=== PATIENT | female | born 1930 | race Caucasian/White ===

== ENCOUNTER 2016-11-04 19:50 | Inpatient (IN) | payer OTHER ==
--- NOTE | ~2016-11-04 | CR71 ---
[facility] A Service of [facility] RADIOLOGY TEXT RESULTS PATIENT: TYRESE GAMA LOCATION: [facility] : 31 UNIT #: [id number] AGE: [address]: Zan Blanchard MD SEX: F ORDER DR: [id number] [facility] [address]. [place], [place] [address] [id number] I MR#: [id number] Acc #: [id number] NAME: TYRESE GAMA : 1930 SEX: F STUDY DATE/TIME: 11/05/2016 0:02 UNIT: [facility] ROOM: [facility] STUDY DESCRIPTION: CR Chest Single View Attending Physician: Zan Blanchard M.D. Ordering Physician: Zan Blanchard M.D. Primary Care Physician: Brian Mao M.D. MEDICAL IMAGING REPORT This report is preliminary unless electronic signature is present EXAM Portable chest, 11/05/2016 INDICATION Shortness of air and syncope today. PROCEDURE Frontal view chest. COMPARISON 11/04/2016 at 1929 hours. FINDINGS Cardiomegaly is stable. Stable large left pleural effusion. Diffuse interstitial coarsening is unchanged. Probable small right effusion. No pneumothorax. IMPRESSION No significant change from 11/04/2016 at 1929 hours, stable large left effusion and small right effusion. Dictated by... Elier Vanessa M.D. THIS IS AN ELECTRONICALLY VERIFIED REPORT Elier Vanessa M.D. at 11/05/2016 10:14 PM SHANNOND/ellen TD: 11/05/2016 03:12 JOB #: [id number] [facility] A Service of [facility] RADIOLOGY TEXT RESULTS PATIENT: TYRESE GAMA LOCATION: [facility] : 31 UNIT #: [id number] AGE: [address]: Zan Blanchard MD SEX: F ORDER DR: MEDICAL IMAGING REPORT Page 1 of 1 COPY
--- NOTE | ~2016-11-04 | CO ---
Unit #: [id number] #: [id number] Patient: TYRESE GAMA [id number] [address] [address] [id number] I MR#: [id number] NAME: TYRESE GAMA ROOM: 561 Age: 86 Sex: F Admission Date: 11/04/2016 : 1930 Attending Physician: Zan Blanchard M.D. Primary Care Physician: Brian Mao M.D. CONSULTATION REPORT REASON FOR CONSULTATION Respiratory failure. CHIEF COMPLAINT Shortness of breath. HISTORY OF PRESENT ILLNESS An 86-year-old female with past medical history of coronary artery disease, congestive heart failure, pulmonary hypertension, dyslipidemia, likely COPD who presents with a complaint of shortness of breath to the emergency room and chest x-ray shows bilateral effusion and bilateral pulmonary edema and atelectasis on the left side. I am seeing the patient at bedside. PAST MEDICAL HISTORY As described above. PAST SURGICAL HISTORY CABG. MEDICATIONS 1. Aspirin. 2. Lipitor. 3. Multivitamin. ALLERGIES No known drug allergies. SOCIAL HISTORY Ex-smoker. No alcohol. No drug abuse. FAMILY HISTORY None as per record. PHYSICAL EXAMINATION VITAL SIGNS: Temperature 98, pulse 67, respirations 20, blood pressure 194/50. NEUROLOGIC: Awake, alert, oriented. No neuro deficit. HEENT: PERRLA plus 1. NECK: Supple. No JVD. CHEST: Bilateral air entry. Bilateral mild rhonchi. GASTROINTESTINAL: Nontender, soft. Bowel sounds positive. EXTREMITIES: Positive edema. SKIN: No rash. No ulcer. Unit #: [id number] #: [id number] Patient: TYRESE GAMA LYMPHATIC: No lymphadenopathy. DIAGNOSTIC STUDIES LABORATORY: Blood gas: A pH 7.27, pCO2 of 70, pO2 of 71. Creatinine is 0.5. BNP was 497. White count is normal. Hemoglobin 10, hematocrit 33, platelet count 143,000. ASSESSMENT 1. Acute hypoxic hypercapnic respiratory failure. 2. Acute exacerbation of congestive heart failure. 3. Acute exacerbation of chronic obstructive pulmonary disease. 4. Pleural effusion. 5. History of mitral regurgitation. PLAN At this point, plan is to continue patient on IV diuresis. Start her on IV steroids, IV antibiotics, bronchodilator, gastrointestinal/deep venous thrombosis prophylaxis. Will order noncontrast CT of the chest. Will order a thoracentesis also. The patient will be closely monitored. Please see orders for detailed plan. Will also continue the BiPAP support. Thank you very much for this consultation. Dictated by... Real Fontenot TD: 11/05/2016 12:24 JOB #: [id number] CONSULTATION REPORT Page 1 of 1 X Nelson Tovar MD X CONSULTATION REPORT
--- NOTE | ~2016-11-04 | A ---
[facility] Nutrition Therapy DATE: 11/06/16 Patient: TYRESE GAMA Physician: ROBYN Address: [address] Room/Bed: [address] [place] [address], Zip: [place] [address] Admit Date: 11/04/16 Date of : 31 Height: 5 4 Weight: 144 65.6 NUTRITIONAL ASSESSMENT: REASON: Stroke protocol nutrition assessment Anthropometrics: Ht: 64" Wt: 65.6 kg BMI: 24.8 Diet: Heart healthy with 1800 cc fluid restriction Assessment: Chart reviewed, events noted. Pt does not have any swallowing difficulties per note in chart. Pt has been ordered a heart healthy diet with 1800 cc fluid restriction. Pt was off the floor at echocardiogram at time of RD visit, and no family present in the room. Per RN report the pt ate breakfast this AM, and ordered lunch, which was sitting in the room at time of RD visit. RD left heart healthy diet materials at bedside, as well as contact information for RD. RD to remain available if the pt has any questions/ concerns regarding her diet. Recommendations: 1. Pt to follow a heart healthy diet with fluid restriction per MD. Please consult RD for any further nutritional needs. Respectfully, TREMAINE WEAVER RD, LD [employer] and [facility] cc: client file
--- NOTE | ~2016-11-04 | MR122 ---
[facility] A Service of [facility] RADIOLOGY TEXT RESULTS PATIENT: TYRESE GAMA LOCATION: [facility] : 31 UNIT #: [id number] AGE: [address]: Zan Blanchard MD SEX: F ORDER DR: [id number] [facility] [address] [facility] [place], [place] [address] [id number] I MR#: [id number] Acc #: [id number] NAME: TYRESE GAMA : 1930 SEX: F STUDY DATE/TIME: 11/06/2016 18:03 UNIT: A PCU ROOM: [facility] STUDY DESCRIPTION: MR MRA Head Wo Contrast Attending Physician: Zan Blanchard M.D. Ordering Physician: Zan Blanchard M.D. Primary Care Physician: Brian Mao M.D. MRI CENTER REPORT This report is preliminary unless electronic signature is present. EXAM MR angiogram brain without contrast HISTORY Near-syncope and weakness 2 days ago. New onset confusion. FINDINGS MR angiogram of the brain was performed without contrast. Exam sensitivity is partly limited by patient motion. The intracranial internal carotid arteries appear widely patent. 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 The basilar artery is widely patent. Incidentally noted is a fenestrated distal left A1 segment. Patent anterior communicating artery is noted. origin of the right posterior cerebral artery. The anterior cerebral, middle cerebral and posterior cerebral arteries are widely patent. No major vessel occlusion is identified. No aneurysm is identified. IMPRESSION 1. No major intracranial arterial occlusion or significant stenosis is identified. 2. 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 Dictated by... Abimael Escamilla M.D. [facility] A Service of [facility] RADIOLOGY TEXT RESULTS PATIENT: TYRESE GAMA LOCATION: [facility] : 31 UNIT #: [id number] AGE: [address]: Zan Blanchard MD SEX: F ORDER DR: THIS IS AN ELECTRONICALLY VERIFIED REPORT Abimael Bhakti Escamilla M.D. at 11/07/2016 2:28 PM COLLIN/ellen TD: 11/06/2016 22:59 JOB #: [id number] [facility] CENTER REPORT Page 1 of 1 COPY
--- NOTE | ~2016-11-04 | CR63 ---
[facility] A Service of [facility] & [facility] RADIOLOGY TEXT RESULTS PATIENT: TYRESE GAMA LOCATION: [facility] - : 31 UNIT #: [id number] AGE: [address]: Zan Blanchard MD SEX: F ORDER DR: [id number] [facility] [address]. [place], [place] [address] [id number] I MR#: [id number] Acc #: [id number] NAME: TYRESE GAMA : 1930 SEX: F STUDY DATE/TIME: 11/07/2016 7:24 UNIT: A U ROOM: [facility] STUDY DESCRIPTION: CR Chest 2 View Attending Physician: Zan Blanchard M.D. Ordering Physician: Zan Blanchard M.D. Primary Care Physician: Brian Mao M.D. MEDICAL IMAGING REPORT This report is preliminary unless electronic signature is present EXAM 2 views chest 11/07/2016 HISTORY Follow up CHF. Short of air. Duration 4 days. CABG. Valve replacement. FINDINGS PA and lateral radiographs of the chest are presented. Comparison 11/05/2016. Stable cardiac enlargement status post median sternotomy and cardiac valve replacement. Patient appears to be status post CABG as well. Ongoing unchanged pulmonary vascular congestion. Interstitial prominence throughout the lungs unchanged. Airspace disease left lower lung zone with small bilateral pleural effusions, left greater than right. No change. Findings consistent with stable moderate pulmonary edema likely cardiogenic with interstitial airspace and pleural space components. No acute bony abnormality. Dictated by... Boogie Echeverria M.D. THIS IS AN ELECTRONICALLY VERIFIED REPORT Boogie Echeverria M.D. at 11/08/2016 4:49 PM BONNIE/osvaldo TD: 11/07/2016 08:53 JOB #: [id number] MEDICAL IMAGING REPORT Page 1 of 1 COPY
--- NOTE | ~2016-11-04 | CR72 ---
[facility] A Service of [facility] & [facility] RADIOLOGY TEXT RESULTS PATIENT: TYRESE GAMA LOCATION: [facility] 561-01 : 31 UNIT #: [id number] AGE: [address]: Zan Blanchard MD SEX: F ORDER DR: [id number] [facility] [address] [facility] [place], [place] [address] [id number] I MR#: [id number] Acc #: [id number] NAME: TYRESE GAMA : 1930 SEX: F STUDY DATE/TIME: 11/04/2016 19:29 UNIT: [facility] ROOM: [facility] STUDY DESCRIPTION: CR Chest Single View Portable Attending Physician: Zan Blanchard M.D. Ordering Physician: Josh Wasserman M.D. Primary Care Physician: Brian Mao M.D. MEDICAL IMAGING REPORT This report is preliminary unless electronic signature is present EXAM Single view of the chest INDICATIONS Dizziness. Status post fall. Shortness of air and weakness. FINDINGS Single portable AP of the chest compared to 10/02/16. The heart is enlarged. There is increased pulmonary vascular congestion suggesting mild edema. This is fairly similar to the prior study. There is moderate left and a small right pleural effusion. No pneumothorax. IMPRESSION Interstitial edema, large left and small right pleural effusions are unchanged from the 10/02/2016 exam Dictated by... Tony Rizzo M.D. THIS IS AN ELECTRONICALLY VERIFIED REPORT Tony Rizzo M.D. at 11/05/2016 2:31 PM NIKUNJ/daniel TD: 11/04/2016 23:58 JOB #: [id number] MEDICAL IMAGING REPORT Page 1 of 1 COPY
--- NOTE | ~2016-11-04 | XA203 ---
[facility] A Service of [facility] RADIOLOGY TEXT RESULTS PATIENT: TYRESE GAMA LOCATION: [facility] - : 31 UNIT #: [id number] AGE: [address]: Zan Blanchard MD SEX: F ORDER DR: [id number] [facility] [address] [facility]. [place], [place] [address] [id number] I MR#: [id number] Acc #: [id number] NAME: TYRESE GAMA : 1930 SEX: F STUDY DATE/TIME: 11/05/2016 14:53 UNIT: C3[facility] PCU ROOM: [facility] STUDY DESCRIPTION: XA Thoracentesis Attending Physician: Zan Blanchard M.D. Ordering Physician: Zan Blanchard M.D. Primary Care Physician: Brian Mao M.D. MEDICAL IMAGING REPORT This report is preliminary unless electronic signature is present EXAM Ultrasound guided left thoracentesis. INDICATIONS Large left pleural effusion. PROCEDURE The risks, benefits, and alternatives to the procedure explained to the patient, and signed informed consent was obtained. She was placed in the upright position. Preliminary ultrasound of the left hemithorax was performed. This did demonstrate a large left pleural effusion and this image was permanently saved. Overlying skin was marked. Patient was prepped and draped in usual sterile fashion. Time-out was performed as per protocol. Skin and subcutaneous tissues were anesthetized with buffered lidocaine and a Acarix catheter was advanced into fluid with aspiration of serosanguineous material. Catheter was hook to suction tubing with evacuation of a total of a L of serosanguineous material. Catheter was then removed and manual pressure was applied until hemostasis was obtained. IMPRESSION Technically successful ultrasound guided left thoracentesis as noted above. Ultrasound was used during the procedure and permanent images were saved. Dictated by... Kasey Rivera M.D. THIS IS AN ELECTRONICALLY VERIFIED REPORT Kasey Rivera M.D. at 11/07/2016 6:30 PM AFF/dj TD: 11/07/2016 13:04 [facility] A Service of [facility] RADIOLOGY TEXT RESULTS PATIENT: TYRESE GAMA LOCATION: [facility] 307-01 : 31 UNIT #: [id number] AGE: [address]: Zan Blanchard MD SEX: F ORDER DR: JOB #: [id number] MEDICAL IMAGING REPORT Page 1 of 1 COPY
--- NOTE | ~2016-11-04 | XA203 ---
[facility] A Service of [facility] & [facility] RADIOLOGY TEXT RESULTS PATIENT: TYRESE GAMA LOCATION: [facility] - : 31 UNIT #: [id number] AGE: [address]: Zan Blanchard MD SEX: F ORDER DR: [id number] [facility] [address] [place], [place] [address] [id number] I MR#: [id number] Acc #: [id number] NAME: TYRESE GAMA : 1930 SEX: F STUDY DATE/TIME: 11/11/2016 13:57 UNIT: [address] ROOM: [facility] STUDY DESCRIPTION: XA Thoracentesis Attending Physician: Zan Blanchard M.D. Ordering Physician: Zan Blanchard M.D. Primary Care Physician: Brian Mao M.D. MEDICAL IMAGING REPORT This report is preliminary unless electronic signature is present EXAM Ultrasound of the left hemithorax INDICATION Left pleural effusion was identified on a chest radiograph from November 10, 2016. FINDINGS Preliminary ultrasound of the left hemithorax demonstrated insufficient volume of fluid for safe thoracentesis. Procedure was subsequently terminated. IMPRESSION Insufficient volume of fluid for safe thoracentesis at this time. Dictated by... Kasey Rivera M.D. THIS IS AN ELECTRONICALLY VERIFIED REPORT Kasey Rivera M.D. at 11/13/2016 12:21 PM AFF/mjleti TD: 11/12/2016 10:33 JOB #: [id number] MEDICAL IMAGING REPORT Page 1 of 1 COPY
--- NOTE | ~2016-11-04 | MR18 ---
[facility] A Service of [facility] RADIOLOGY TEXT RESULTS PATIENT: TYRESE GAMA [facility] : 31 UNIT #: [id number] AGE: [address]: Zan Blanchard MD SEX: F ORDER DR: [id number] [id number] [place], [place] [address] [id number] I MR#: [id number] Acc #: [id number] NAME: TYRESE GAMA : 1930 SEX: F STUDY DATE/TIME: 11/05/2016 21:08 UNIT: C5B ROOM: [facility] STUDY DESCRIPTION: MR Brain Wo Contrast Attending Physician: Zan Blanchard M.D. Ordering Physician: Darren Galeana M.D. Primary Care Physician: Brian Mao M.D. MRI CENTER REPORT This report is preliminary unless electronic signature is present. EXAM MR brain INDICATIONS Cognitive changes. Disorientation. Near-syncope and weakness. Confusion. TECHNIQUE Multiplanar MRI of the brain without contrast. COMPARISON None available. FINDINGS There is a small 1 cm lacunar infarct in the right centrum semiovale adjacent to the right lateral ventricle. There is no associated mass effect or midline shift. There is corresponding decreased signal on the ADC map. There is generalized atrophy and chronic small vessel changes. Ventricles and basilar cisterns are normal in size configuration. No extraaxial collections. There is a right mastoid effusion. IMPRESSION 1. Acute lacunar infarct in the right centrum semiovale. No mass effect or hemorrhage. 2. Right mastoid effusion. 3. Findings were called to the patient's nurse at 22:30 on 11/05/16. STAT * RESULT [facility] A Service of [facility] RADIOLOGY TEXT RESULTS PATIENT: TYRESE GAMA LOCATION: [facility] 307 : 31 UNIT #: [id number] AGE: [address]: Zan Blanchard MD SEX: F ORDER DR: Dictated by... Tony Rizzo M.D. THIS IS AN ELECTRONICALLY VERIFIED REPORT Tony Rizzo M.D. at 11/06/2016 2:57 PM RPC/daniel TD: 11/05/2016 22:32 JOB #: [id number] MRI CENTER REPORT Page 1 of 1 COPY
--- NOTE | ~2016-11-04 | CR63 ---
[facility] A Service of [facility] RADIOLOGY TEXT RESULTS PATIENT: TYRESE GAMA LOCATION: [facility] : 31 UNIT #: [id number] AGE: [address]: Zan Blanchard MD SEX: F ORDER DR: [id number] [facility] [address] [facility]. [place], [place] [address] [id number] I MR#: [id number] Acc #: [id number] NAME: TYRESE GAMA : 1930 SEX: F STUDY DATE/TIME: 11/08/2016 7:36 UNIT: [address] ROOM: [facility] STUDY DESCRIPTION: CR Chest 2 View Attending Physician: Zan Blanchard M.D. Ordering Physician: Zan Blanchard M.D. Primary Care Physician: Brian Mao M.D. MEDICAL IMAGING REPORT This report is preliminary unless electronic signature is present EXAM Two view chest 11/08/2016 HISTORY Congestive heart failure. FINDINGS AP radiograph of the chest is presented. Comparison 11/07/2016 at 07:24 hours. Status post median sternotomy and CABG. Stable cardiac enlargement. Lungs somewhat hyperinflated overall suggesting underlying chronic airway disease. Stable appearance of mild vascular congestion. Mild interstitial prominence. Mid to lower lung zones stable and likely reflecting mild interstitial edema. Small right pleural effusion. Small to moderate left pleural effusion. Left pleural effusion appears decreased in volume. Obscuration of pulmonary parenchyma at the left lung base from pleural fluid. Underlying atelectasis or airspace consolidation not excluded. Continued follow up to resolution recommended. No pneumothorax. No acute bony abnormality. Dictated by... Boogie Echeverria M.D. THIS IS AN ELECTRONICALLY VERIFIED REPORT Boogie Echeverria M.D. at 11/08/2016 4:49 PM Christ TD: 11/08/2016 09:49 JOB #: [id number] MEDICAL IMAGING REPORT [facility] A Service of [facility] RADIOLOGY TEXT RESULTS PATIENT: TYRESE GAMA LOCATION: [facility] 307-01 : 31 UNIT #: [id number] AGE: [address]: Zan Blanchard MD SEX: F ORDER DR: Page 1 of 1 COPY
--- NOTE | ~2016-11-04 | CO ---
Unit #: [id number] #: [id number] Patient: TYRESE GAMA [id number] [facility] [address]. [place], [place] [address] [id number] I MR#: [id number] NAME: TYRESE GAMA ROOM: 561 Age: 86 Sex: F Admission Date: 11/04/2016 : 1930 Attending Physician: Zan Blanchard M.D. Primary Care Physician: Brian Mao M.D. Requesting Physician: Zan Blanchard M.D. Consultation Date: 11/05/2016 CONSULTATION REPORT REASON FOR CONSULTATION Evaluation for cognitive changes and rule out strokelike findings after the last surgery. PATIENT IDENTIFICATION This is an 86-year-old, right-handed white female who was evaluated in room 561 at [facility]. SOURCE OF INFORMATION Source of information is the patient but more than that her daughter and medical record. PROBLEM LIST I believe she has had cardiac surgery recently, fall and left ankle pain and dyslipidemia, pulmonary hypertension. She is status post coronary artery bypass grafting, cataract surgery and mitral valve replacement. HISTORY OF PRESENT ILLNESS The patient is an 86-year-old female who actually reports that she has some shortness of breath but the reason neurology consultation was obtained is because after she had surgery done, I believe middle of September and then she went to rehab in October, she has not been herself. She has more cognitive changes. She has generalized weakness. There is nothing focal reported to me. They really did not report any significant dizziness or other issues. There was never any right or left-sided weakness. Her admission diagnoses are dlzhd-bn-wgpjxfd diastolic congestive heart failure with fluid overload, next is large left pleural effusion and small on the right side, next is her pCO2 was 70.5, her pO2 was 71.8. Next is there is nothing active neurologic reported, no seizures, no migraines, no headaches. There are no imaging studies. The family wanted to know cognitive evaluation results but there are none done. Next is I am not really sure how her baseline was but she has not been herself for almost six weeks and during that time she has had major cardiac surgery done. PAST MEDICAL HISTORY As discussed above. Unit #: [id number] #: [id number] Patient: TYRESE GAMA PAST SURGICAL HISTORY As discussed above. ALLERGIES None. HOME MEDICATIONS 1. Aspirin. 2. Lipitor. 3. Multivitamin. FAMILY HISTORY No strokes or seizures and may not be contributory secondary to her age. SOCIAL HISTORY She quit smoking 15 years ago, no alcohol or drug use. She apparently lives alone but two daughters are nearby and they are taking care of her. REVIEW OF SYSTEMS Very difficult to obtain the details but: GENERAL: Fatigue and generalized weakness. No weight issues. No fever, chills or rigors. HEENT: No headaches. No double vision, earache, runny nose, sore throat. CARDIOVASCULAR: No chest pain, clubbing, cyanosis, orthopnea or palpitation. PULMONARY: No shortness of air, cough or expectoration. GASTROINTESTINAL: No nausea, vomiting, diarrhea or constipation. GENITOURINARY: No symptoms. MUSCULOSKELETAL: No extremity problems other than weakness. No back problem. PSYCHIATRIC: No psychiatric issue. Questionable cognitive changes. NEUROLOGIC: Questionable cognitive changes. No other hematologic, dermatologic or endocrine issues. She did come in with shortness of air but that all has improved. PHYSICAL EXAMINATION VITAL SIGNS: Temperature 98.4, pulse 67, respirations are 20, blood pressure 94/50, O2 sats were 90% to 96%. Weight of 144 pounds. BMI was 24. NEUROLOGICAL EXAMINATION GENERAL: The patient is awake. She is alert. She knows she is in the hospital but she cannot tell me the date, the day or the month or the year. She can name. She recognizes family members. No right/left confusion. No finger agnosia. CRANIAL NERVES: The cranial nerve examination demonstrates responds to threats in all cueto. Eye movements are conjugate. I did not see any ptosis. I did not see any nystagmus. Extraocular movements are intact. Sensation of the face and scalp is normal. Sensory muscles of facial expression are normal. Hearing seemed to be intact bilaterally. Tongue was midline. Uvula was midline. Head turning was spontaneous. No neck stiffness. MOTOR: Examination demonstrates normal bulk, tone. Strength was 5-/5 all over. No pronator drift or fine motor movement abnormalities were seen. SENSORY: Examination intact for soft touch and pain sensation. No extinction was seen. Romberg was not evaluated. Unit #: [id number] #: [id number] Patient: NATAN,TYRESE GAIT: Examination was deferred. REFLEXES: I could not get any reflexes. Toes are equivocal. DIAGNOSTIC STUDIES LABORATORY: Labs reviewed. IMAGING: No imaging studies available. IMPRESSION Generalized weakness. The question is did something happen during surgery or is this just cognitive changes that are occurring in the patient. There is nothing active. There is nothing focal. She has a lot of metabolic issues. I will check her MRI of the brain. I will check her carotid Dopplers. I may end up with CTA. I will check her other labs and probably she will need an outpatient full neurocognitive evaluation which she has to be scheduled for. I am not changing anything at present. Continue the present plan. Call me with any other questions, issues or concerns. I discussed with her daughter. Dictated by... Real Mccoy/lupillo TD: 11/05/2016 17:31 JOB #: [id number] CONSULTATION REPORT Page 1 of 1 X Darren Galeana MD X CONSULTATION REPORT
--- NOTE | ~2016-11-04 | CR71 ---
[facility] A Service of [facility] RADIOLOGY TEXT RESULTS PATIENT: TYRESE GAMA LOCATION: [facility] 307-01 : 31 UNIT #: [id number] AGE: [address]: Zan Blanchard MD SEX: F ORDER DR: [id number] [facility] [address]. [place], [place] [address] [id number] I MR#: [id number] Acc #: [id number] NAME: TYRESE GAMA : 1930 SEX: F STUDY DATE/TIME: 11/05/2016 15:28 UNIT: C5B ROOM: [facility] STUDY DESCRIPTION: CR Chest Single View Attending Physician: Zan Blanchard M.D. Ordering Physician: Kasey Rivera M.D. Primary Care Physician: Brian Mao M.D. MEDICAL IMAGING REPORT This report is preliminary unless electronic signature is present EXAM Portable chest radiograph INDICATION Evaluate for pneumothorax following left-sided thoracentesis FINDINGS Comparison made to prior exam from earlier today. Patient is noted to have cardiomegaly and vascular congestion although I think it is probably improved when compared to the earlier examination. Left pleural effusion I think is probably smaller than on the prior examination, but there is probably some residual fluid. No pneumothorax is seen. There is also a small right pleural effusion as well. This patient is status post median sternotomy with coronary artery bypass grafting and valve replacement Dictated by... Kasey Rivera M.D. THIS IS AN ELECTRONICALLY VERIFIED REPORT Kasey Rivera M.D. at 11/07/2016 6:33 PM AFF/rnr TD: 11/05/2016 18:03 JOB #: [id number] MEDICAL IMAGING REPORT Page 1 of 1 COPY
--- NOTE | ~2016-11-04 | EKG ---
PATIENT: TYRESE GAMA UNIT #: [id number] Ventricular Rate: 65 BPM Atrial Rate: 65 BPM P-R Interval: 92 ms QRS Duration: 102 ms Q-T Interval: 452 ms QTC Calculation(Bezet): 470 ms P Cleveland: 31 degrees Calculated R Cleveland: -5 degrees Calculated T Cleveland: 168 degrees Diagnosis Line: Sinus rhythm with short IA Diagnosis Line: Septal infarct , age undetermined Diagnosis Line: T wave abnormality, consider inferolateral Diagnosis Line: ischemia Diagnosis Line: Abnormal ECG Diagnosis Line: When compared with ECG of 20-AUG-2016 07:48, Diagnosis Line: QRS duration has increased Diagnosis Line: Septal infarct is now Present Diagnosis Line: Nonspecific T wave abnormality now evident in Diagnosis Line: Inferior leads Diagnosis Line: T wave inversion now evident in Lateral leads Diagnosis Line: Confirmed by SERGIO SILVA MD ([id number]) on 11/05/2016 Diagnosis Line: 11:23:06 PM INTERPRETING MD: SHIRA ARTEAGA
--- NOTE | ~2016-11-04 | CR72 ---
[facility] A Service of [facility] RADIOLOGY TEXT RESULTS PATIENT: TYRESE GAMA LOCATION: [facility] : 31 UNIT #: [id number] AGE: [address]: Zan Blanchard MD SEX: F ORDER DR: [id number] [facility] [address]. [place], [place] [address] [id number] I MR#: [id number] Acc #: [id number] NAME: TYRESE GAMA : 1930 SEX: F STUDY DATE/TIME: 11/10/2016 10:59 UNIT: [address] ROOM: [facility] STUDY DESCRIPTION: CR Chest Single View Portable Attending Physician: Zan Blanchard M.D. Ordering Physician: Marv Pittman M.D. Primary Care Physician: Brian Mao M.D. MEDICAL IMAGING REPORT This report is preliminary unless electronic signature is present EXAM Single view of the chest dated 11/10/2016 at 1059 hours. COMPARISON Chest 2 views dated 11/08/2016. HISTORY Shortness of air, weakness, near-syncope for the last 3 weeks. FINDINGS Single view of the chest was obtained. Postoperative cardiac changes are noted with evidence of valve replacement, stable. Stable cardiomegaly/pericardial effusion. Left pleural effusion appears to have slightly increased from mild to mild to moderate, and likely has underlying atelectasis/infiltrate. There is probably mild right pleural effusion with mild atelectatic lung changes also. Patient likely has underlying emphysematous lung changes with mild interstitial lung disease diffusely. IMPRESSION 1. Left pleural effusion appears to have slightly increased from mild to mild to moderate. The remaining findings are stable. Dictated by... Ryan Ngo M.D. THIS IS AN ELECTRONICALLY VERIFIED REPORT Ryan Ngo M.D. at 11/11/2016 2:58 PM CPR/psc [facility] A Service of [facility] RADIOLOGY TEXT RESULTS PATIENT: TYRESE GAMA LOCATION: [facility] 307-01 : 31 UNIT #: [id number] AGE: [address]: Zan Blanchard MD SEX: F ORDER DR: TD: 11/10/2016 16:53 JOB #: [id number] MEDICAL IMAGING REPORT Page 1 of 1 COPY
--- NOTE | ~2016-11-04 | US77 ---
[facility] A Service of [facility] RADIOLOGY TEXT RESULTS PATIENT: TYRESE GAMA LOCATION: [facility] - : 31 UNIT #: [id number] AGE: [address]: Zan Blanchard MD SEX: F ORDER DR: [id number] [place] [id number] [facility]. [place], [place] [address] [id number] I MR#: [id number] Acc #: [id number] NAME: TYRESE GAMA : 1930 SEX: F STUDY DATE/TIME: 11/07/2016 7:59 UNIT: A U ROOM: [facility] STUDY DESCRIPTION: US Kidney Bilateral Complete Attending Physician: Zan Blanchard M.D. Ordering Physician: Zan Blanchard M.D. Primary Care Physician: Brian Mao M.D. MEDICAL IMAGING REPORT This report is preliminary unless electronic signature is present EXAM Renal ultrasound bilateral, 11/07/2016. HISTORY Acute renal insufficiency, abnormal renal function tests on 11/07/2016, elevated BUN of 41. Abnormally low GFR of 51. FINDINGS The right kidney measured 8.7 cm, while the left kidney measured 8.6 cm in longitudinal dimensions. There is no evidence of hydronephrosis or nephrolithiasis. No cystic or solid mass lesions were seen on either kidney. There is normal renal cortical echogenicity. The bladder was empty for the exam due to the presence of a Burk catheter and therefore poorly visualized. There are bilateral pleural effusions. IMPRESSION 1. Negative renal ultrasound. 2. The bladder was empty for the exam and therefore poorly visualized. 3. Bilateral pleural effusions. Dictated by... Tomas Grayson M.D. THIS IS AN ELECTRONICALLY VERIFIED REPORT Tomas Grayson M.D. at 11/08/2016 8:04 AM CITLALLI/robi TD: 11/07/2016 10:47 JOB #: [id number] MEDICAL IMAGING REPORT [facility] A Service of [facility] RADIOLOGY TEXT RESULTS PATIENT: TYRESE GAMA LOCATION: [facility] 307-01 : 31 UNIT #: [id number] AGE: [address]: Zan Blanchard MD SEX: F ORDER DR: Page 1 of 1 COPY
--- NOTE | ~2016-11-04 | MR134 ---
[facility] A Service of [facility] RADIOLOGY TEXT RESULTS PATIENT: TYRESE GAMA LOCATION: [facility] : 31 UNIT #: [id number] AGE: [address]: Zan Blanchard MD SEX: F ORDER DR: [id number] [facility] [address]. [place], [place] [address] [id number] I MR#: [id number] Acc #: [id number] NAME: TYRESE GAMA : 1930 SEX: F STUDY DATE/TIME: 11/06/2016 18:03 UNIT: [facility] ROOM: [facility] STUDY DESCRIPTION: MR MRA Neck Wo Contrast Attending Physician: Zan Blanchard M.D. Ordering Physician: Zan Blanchard M.D. Primary Care Physician: Brian Mao M.D. MRI CENTER REPORT This report is preliminary unless electronic signature is present. EXAM MRA neck. INDICATION Near-syncope. Generalized weakness. Confusion. TECHNIQUE 2-D uokt-rz-uajvij MRA of the neck without contrast. COMPARISON Carotid Doppler dated 11/05/2016. FINDINGS Unfortunately there is a significant amount of motion on the study, however, there is clear depiction of the carotid bifurcation. There is no evidence of a significant carotid arterial stenosis. Carotid arterial stenosis is determined by the NASCET criteria. 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 The vertebral arteries are patent with antegrade flow. IMPRESSION No evidence of a carotid arterial stenosis. Dictated by... Tony Rizzo M.D. THIS IS AN ELECTRONICALLY VERIFIED REPORT Tony Rizzo M.D. at 11/07/2016 3:23 PM NIKUNJ/ellen [facility] A Service [facility] RADIOLOGY TEXT RESULTS PATIENT: TYRESE GAMA LOCATION: [facility] : 31 UNIT #: [id number] AGE: [address]: Zan Blanchard MD SEX: F ORDER DR: TD: 11/06/2016 22:55 JOB #: [id number] MRI CENTER REPORT Page 1 of 1 COPY
--- NOTE | ~2016-11-04 | HP ---
Unit #: [id number] #: [id number] Patient: TYRESE GAMA [id number] [address] [place], [place] [address] [id number] I MR#: [id number] NAME: TYRESE GAMA ROOM: 561 Age: 86 Sex: F Admission Date: 11/04/2016 : 1930 Attending Physician: Zan Blanchard M.D. Primary Care Physician: Brian Mao M.D. HISTORY AND PHYSICAL CHIEF COMPLAINT Patient states to me shortness of breath. ER records state dizziness with fall and injury to the left ankle. HISTORY OF PRESENT ILLNESS Ms. Gama is an 86-year-old, elderly white female, who is a poor historian and has confusion regarding her history. The patient states to me she was admitted with shortness of air and this dates back to August when they started a medication. Review of old records does verify that patient has had shortness of breath since August with a previous medication. The ER record states that the patient fell from a standing position because of dizziness. She received a chest x-ray in the emergency room that shows bilateral pleural effusion. Also states that the patient has a skin tear on her left ankle. The patient is able to tell me that she underwent bypass surgery in September and states that she only takes aspirin and no other medication. She denies any other symptoms. No chest discomfort. She denied dizziness to me. She denies diabetes, she denies hypertension, she denies dyslipidemia stating that her only medication is a baby aspirin. PAST MEDICAL HISTORY 1. Arteriosclerotic heart disease with coronary catheterization that showed three vessel coronary disease. Proximal LAD had 75% to 80%. The left circumflex was occluded. There was an 80% to 90% in the mid right coronary artery. The patient had an echo done 07/2016 with an EF of 60%, moderate pulmonary hypertension, mild to moderate MR, moderate to severe AR. The patient underwent repeat echo and MALVIN which showed EF 60%, moderate to severe AI, moderate mitral regurg, pulmonary hypertension with a right ventricular systolic pressure of 42. 2. Dyslipidemia. 3. Pulmonary hypertension. PAST SURGICAL HISTORY 1. Coronary artery bypass grafting x3 with mitral valve replacement with a tissue valve, septal myomectomy. She underwent PACKER to the LAD, saphenous vein graft to the first obtuse marginal of the left circumflex, and a saphenous vein graft to the right coronary artery. 2. She also had cataract surgery. MEDICATIONS Patient's home medications are: 1. Aspirin 81 mg daily. 2. Lipitor 80 mg daily. 3. Multivitamin tablet daily. Unit #: [id number] #: [id number] Patient: TYRESE GAMA ALLERGIES No known allergies. SOCIAL HISTORY She does not use tobacco, she quit years ago. Unable to tell me when she quit. Review of records states that she quit 15 years ago. No alcohol. Lives alone and states she has two daughters that live nearby. FAMILY HISTORY Noncontributory. REVIEW OF SYSTEMS Negative for fevers, negative for chills. Positive for cough, positive for shortness of air, positive for dyspnea on exertion. CORONARY: Denies chest discomfort, denies chest pain. Positive for swelling. Positive for lower extremity swelling. No hematuria, no melena, no bright red bleeding per rectum, no hematochezia. Denies seizures, denies gait instability. PHYSICAL EXAMINATION VITAL SIGNS: Temp 98.4, pulse 67, respirations 20, blood pressure 94/50, weight 65.8 kilograms, 5 feet 4 inches, BMI 24. GENERAL: Well developed, well nourished, elderly white female who is a poor historian with mild confusion. She is awake, alert, oriented to person and place but has difficulty with recalling recent events. Past history is intact. HEENT: Normocephalic, atraumatic. No xanthelasma. Pupils equal, round, reactive to light. Extraocular movements intact. NECK: Supple. There is jugular venous distention with elevated CVP approximately 9. LUNGS: With expiratory wheezes bilaterally all cueto. CARDIAC: S1, S2. 1/6 soft murmur. No lift. PMI nondisplaced. ABDOMEN: Positive bowel sounds, soft, nontender, nondistended. EXTREMITIES: Bilateral lower extremities 1+ to 2 pitting edema. Pulses 2+ bilaterally. NEUROLOGICAL: Speech is clear and appropriate. No facial drooping. Moving all extremities equally, spontaneously in the bed with equal strength. DIAGNOSTIC STUDIES CARDIOVASCULAR: 12-lead EKG shows a normal sinus rhythm with ventricular rate of 65. T wave inversion in lead I, AVL, V5 and V6. No acute ST elevation, no acute ST depression. LABORATORY: Chemistry - sodium 142, potassium 4.4, chloride 104, CO2 30, BUN 33, creatinine 0.5, glucose 86, total protein 6.4, AST 32, ALT 32, alkaline phos. 145. Hemoglobin 10.3, hematocrit 33.1, white blood cell count 4.2, platelet count 143. BNP 497. Point of care testing in the ER shows a troponin of less than 0.05. Urinalysis is negative for leukocyte esterase, negative nitrate. IMAGING: Chest x-ray shows no significant change from 11/04/2016. Stable large left effusion and small right effusion. Chest x-ray 11/04 shows interstitial edema, large left and small right Unit #: [id number] #: [id number] Patient: NATAN,TYRESE pleural effusions. ASSESSMENT AND PLAN 1. Acute on chronic diastolic congestive heart failure with fluid volume overload, EF 60%. 2. Large left pleural effusion, small right. 3. Arteriosclerotic heart disease with recent coronary artery bypass grafting x3 September 19, 2016. 4. History of severe mitral regurgitation with mitral valve replacement with tissue valve occurring with her CABG in September. 5. Dyslipidemia, on satin therapy. 6. History of pulmonary hypertension with right ventricular systolic pressure of 42 mmHg. PLAN We will start Lasix 40 mg IV twice daily. We will recheck her BMP and mag in the a.m. We will have PT/OT eval and treat. We will obtain a TSH in the a.m. We will resume her home medications of aspirin 81 mg daily, Lipitor 80 mg daily. The patient was seen in consultation by Dr. Blanchard. Dictated by Lianna Caraballo A.P.R.N. for Zan Blanchard M.D. DEE/jayme TD: 11/05/2016 10:13 JOB #: [id number] HISTORY AND PHYSICAL Page 1 of 1 X X HISTORY AND PHYSICAL
--- NOTE | ~2016-11-04 | DS ---
Unit #: [id number] #: [id number] Patient: TYRESE GAMA [id number] [address] [address] [id number] I MR#: [id number] NAME: TYRESE GAMA ROOM: [facility] Age: 86 Sex: F Admission Date: 11/04/2016 : 1930 Discharge Date: 11/14/2016 Attending Physician: Zan Blanchard M.D. Primary Care Physician: Brian Mao M.D. DISCHARGE SUMMARY DISCHARGE DIAGNOSES 1. Acute hypoxic/hypercapnic respiratory failure. 2. Acute on chronic systolic heart failure, compensated. Ejection fraction of 45%. 3. Acute exacerbation of chronic obstructive pulmonary disease. 4. Recurrent left pleural effusion, status post left thoracentesis. Secondary to chronic lymphocytic effusion. 5. No syncope. 6. Dizziness. 7. Small right lacunar infarct. 8. Moderate pulmonary hypertension. 9. Nonspecific ventricular tachycardia. 10. Valvular heart disease with moderate aortic regurgitation. Mild aortic stenosis with moderate tricuspid regurgitation. 11. Orthostatic hypotension. 12. Hypotension. 13. Thrombocytopenia. 14. Cognitive deficit. 15. History of coronary artery bypass grafting times three with tissue mitral valve replacement 09/19/2016. 16. Two-dimensional echocardiogram 11/06/2016 shows moderate concentric left ventricular hypertrophy, moderate asymmetric septal hypertrophy, moderate hypokinesis of the septal wall. Right ventricular systolic pressure 42 mmHg, consistent with mild pulmonary hypertension. Mild aortic stenosis with moderate aortic regurgitation. Moderate tricuspid regurgitation and moderate pulmonic regurgitation. Bioprosthetic artificial valve in mitral position with mean gradient across the valve 6.7 mm. 17. 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 DISCHARGE MEDICATIONS 1. Lipitor 80 mg at nighttime. 2. Multivitamin 1 tablet daily. 3. Aspirin 81 mg daily. 4. Spironolactone 12.5 mg daily. 5. Potassium chloride 10 mEq daily. 6. Lasix 40 mg daily p.r.n. increased shortness of breath and increased swelling. 7. Amiodarone 200 mg b.i.d. times 7 days, then 200 mg daily. 8. Florinef 0.1 mg b.i.d. 9. Prednisone 10 mg daily times 2 more days and then discontinue. 10. Acetaminophen 650 mg q.4 h. p.r.n. 11. Albuterol/Atrovent 3 ml inhaled b.i.d. Unit #: [id number] #: [id number] Patient: TYRESE GAMA 12. Albuterol/Atrovent 3 ml inhaled q.4 h. p.r.n. dyspnea. 13. Meclizine 25 mg b.i.d. p.r.n. dizziness. HOSPITAL COURSE This is an 86-year-old white female who was brought in to the emergency room with dyspnea and dizziness. She had coronary artery bypass grafting times three with tissue mitral valve placement and septal myopathy in 09/2016. Since that time she has had episodes of dyspnea. She also has dizziness that occurs mostly upon standing up. Dr. Galeana was asked to see the patient for evaluation of dizziness. MRI of the brain was obtained, which showed a small acute lacunar infarct in the right centrum semiovale. MRA of the head and neck showed no carotid stenosis. 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 She was started on Plavix and Lipitor. Aspirin was continued. He suggested followup with Dr. Johnson at discharge. The patient had an elevated BNP and chest x-ray did show large left pleural effusion. She had fluid restriction and was diuresed. IV fluids were discontinued. The patient was started on Aldactone. The pleural effusion persisted despite increase in diuretics. Thoracentesis was done on 11/07/2016, with a total of a liter of serosanguineous material. Fluid was sent for cytology, which showed a few clusters of atypical cells. This was in the background of mesothelial cells. There were some reactive changes and lymphocytes. Repeat chest x-ray shows improvement of the pleural fluid. However, she had a recurrence of the left pleural effusion. Again on 11/11/2016 she underwent thoracentesis, but there was insufficient volume for safe thoracentesis. Diuretics were continued. The patient continued to have dizziness throughout her stay. She was hypotensive. Blood pressure was as low as 82/52 mmHg. Blood pressure improved after IV fluid bolus of normal saline. BOO inhibitor and beta sherice doses were decreased and eventually had to be discontinued altogether because of hypotension and orthostasis. Her blood pressure dropped to 77/44 mmHg. Metoprolol, Lasix and lisinopril all were discontinued. She was given a dose of Florinef as well as normal saline IV fluid bolus. Her blood pressure stabilized. She had several runs of nonsustained ventricular tachycardia and an episode of paroxysmal supraventricular tachycardia at 150 beats per minute. She was started on amiodarone orally. Her heart failure improved with diuretics. Dr. Blanchard felt that the patient's left ventricular outflow tract obstruction was caused by mitral valve prosthesis and permanent aortic regurgitation. 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 Ms. Gama was seen by Dr. Tovar for acute exacerbation of chronic obstructive pulmonary disease and acute hypercapnic hypoxic respiratory failure. She was on oxygen throughout her stay. There was attempt to wean the oxygen to off. However, room air saturations were 88%. Her oxygen was continued. She received Combivent mini-neb and IV steroids that were eventually transitioned to oral prednisone. She was on nocturnal BiPAP. Her respiratory status improved. The patient received IV Rocephin for chronic obstructive pulmonary disease exacerbation, that was discontinued. Today the patient is feeling better. She has dizziness on occasion. Again, Florinef has been started. Will provide meclizine p.r.n. Her blood pressure is currently stable. Antihypertensive medications have been discontinued. She is stable for transfer to rehab. Unit #: [id number] #: [id number] Patient: TYRESE GAMA PHYSICAL EXAMINATION VITALS: Blood pressure 118/47, heart rate 72, temperature 97.4. CHEST: Clear to auscultation. HEART: S1 and S2 with regular rate and rhythm. ABDOMEN: Soft and nontender with bowel sounds present. EXTREMITIES: Without leg edema. SKIN: Warm and dry. DIAGNOSTIC DATA LABORATORY: Glucose 94, BUN 62, creatinine 1.1, sodium 137, potassium 4.5, magnesium 2.1, cholesterol 175, triglycerides 53, LDL 82, HDL 82, TSH 4.66. White blood cell count 9.9, hemoglobin 11.9, hematocrit 37.5, platelets 256. IMAGING: Ultrasound of the kidney showed negative renal ultrasound. MRA of the head and neck shows no major intracranial artery occlusion or stenosis. 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 CT of the chest 11/05/2016 shows acute interstitial edema superimposed on chronic interstitial lung disease. Moderate right pleural fluid volume with compressed atelectasis in the right base. There is a loculated anterior collection in the mediastinum. Ultrasound of the carotids show no evidence for hemodynamically significant carotid artery stenosis. CARDIOVASCULAR: Rhythm strips show normal sinus rhythm. CONSULTANTS Dr. Galeana, neurology. Dr. Tovar, pulmonology. DISPOSITION [facility]. DISCHARGE INSTRUCTIONS 1. The patient will be discharged today. 2. Follow up with primary care physician in two to three weeks, Dr. Blanchard on 12/05/2016 at 12:15, Dr. Johnson in three to four weeks and Dr. Tovar in four weeks. 3. No BOO inhibitor or ARB for cardiomyopathy because of hypotension. Lisinopril, furosemide and metoprolol have been discontinued because of hypotension. 4. Florinef has been started for orthostasis. 5. Will use meclizine p.r.n. for dizziness. 6. The patient may have Lasix 40 mg p.o. p.r.n. for increased shortness of breath or swelling. 7. Continue amiodarone tapering doses for ventricular arrhythmia. 8. Taper prednisone over the next few days. Dictated by... Jose LovePDimpleRJamie for Sunitha Guevara M.D. Unit #: [id number] #: [id number] Patient: TYRESE GAMA AEP/gz TD: 11/14/2016 15:55 JOB #: [id number] CC: [facility] Real Grimaldo M.D. DISCHARGE SUMMARY Page 1 of 1 X Beck Rogers APRN X DISCHARGE SUMMARY
--- NOTE | ~2016-11-04 | EKG ---
PATIENT: TYRESE GAMA UNIT #: [id number] Ventricular Rate: 100 BPM Atrial Rate: 100 BPM P-R Interval: 98 ms QRS Duration: 100 ms Q-T Interval: 344 ms QTC Calculation(Bezet): 443 ms P [place]: 28 degrees Calculated R [place]: 0 degrees Calculated T [place]: 178 degrees Diagnosis Line: Sinus rhythm with short HI with Premature Diagnosis Line: supraventricular complexes Diagnosis Line: Possible Left atrial enlargement Diagnosis Line: Left ventricular hypertrophy with repolarization Diagnosis Line: abnormality Diagnosis Line: Cannot rule out Septal infarct (cited on or before Diagnosis Line: 04-NOV-2016) Diagnosis Line: Abnormal ECG Diagnosis Line: When compared with ECG of 04-NOV-2016 19:38, Diagnosis Line: Premature supraventricular complexes are now Diagnosis Line: Present Diagnosis Line: Vent. rate has increased BY 35 BPM Diagnosis Line: Serial changes of evolving Septal infarct Present Diagnosis Line: Confirmed by SERGIO SILVA MD ([id number]) on 11/06/2016 Diagnosis Line: 10:49:32 PM INTERPRETING MD: SHIRA ARTEAGA
--- NOTE | ~2016-11-04 | CT57 ---
[facility] A Service of [facility] RADIOLOGY TEXT RESULTS PATIENT: TYRESE GAMA LOCATION: [facility] 561-01 : [birth year] UNIT #: [id number] AGE: [address]: Zan Blanchard MD SEX: F ORDER DR: [id number] [facility] [address] [place], [place] [address] [id number] I MR#: [id number] Acc #: [id number] NAME: TYRESE GAMA : 1930 SEX: F STUDY DATE/TIME: 11/05/2016 15:36 UNIT: [facility] ROOM: [facility] STUDY DESCRIPTION: CT Chest Wo Cont Attending Physician: Zan Blanchard M.D. Ordering Physician: Nelson Tovar M.D. Primary Care Physician: Brian Mao M.D. MEDICAL IMAGING REPORT This report is preliminary unless electronic signature is present EXAM Chest CT without contrast. DATE OF EXAM 11/05/2016 HISTORY Dizziness with a fall today. Recent heart surgery with valve replacement. TECHNIQUE Axial images were obtained through the chest without contrast and evaluated at lung and mediastinal windows. NOTE: This CT exam was performed with one or more of the following radiation dose reduction techniques: automatic exposure control, adjustment of mA and/or kV according to patient size, and iterative reconstruction. COMPARISON Compared with 10/01/2016. FINDINGS Chest images at mediastinal window show loculated anterior mediastinal fluid collection more to the left of midline than to the right at the level of the aortic and pulmonary valves. The collection measures approximately 9.5 cm in diameter and 1.5 cm in thickness. It is significantly smaller than on the previous exam. A right pleural effusion is present and volume pleural fluid on the right has increased since the previous examination. It remains moderate. There is a small left effusion and volume of pleural fluid on the left has improved significantly since the previous exam. Lung window imaging shows emphysema with interstitial fibrosis. There is atelectasis at both lung bases, greater on the right than on the left. Interstitial markings are more prominent on the previous examination [facility] A Service of [facility] RADIOLOGY TEXT RESULTS PATIENT: TYRESE GAMA LOCATION: [facility] 561-01 : [birth year] UNIT #: [id number] AGE: [address]: Zan Blanchard MD SEX: F ORDER DR: suggesting there is a component of vascular interstitial edema as well as chronic lung disease. IMPRESSION 1. Acute interstitial edema superimposed on chronic interstitial lung disease. Interstitial markings have increased in prominence since the previous scan of 10/01/2016. 2. Interval development of increased pleural fluid on the right. The right pleural fluid volume is moderate with compressive atelectasis at the right base. 3. The left pleural effusion seen on the previous examination is significantly smaller and aeration at the left lung base has improved. 4. A loculated anterior collection in the mediastinum has decreased in size significantly since the previous examination as measured above. STAT * RESULT Dictated by... Ino Anton M.D. THIS IS AN ELECTRONICALLY VERIFIED REPORT Ino Anton M.D. at 11/05/2016 6:47 PM MOSHE/montse TD: 11/05/2016 16:48 JOB #: [id number] MEDICAL IMAGING REPORT Page 1 of 1 COPY
--- NOTE | ~2016-11-04 | US37 ---
[facility] A Service of [facility] RADIOLOGY TEXT RESULTS PATIENT: TYRESE GAMA LOCATION: [facility] [id number] : [birth year] UNIT #: [id number] AGE: [address]: Zan Blanchard MD SEX: F ORDER DR: [id number] [facility] [address] [place], [place] [address] [id number] I MR#: [id number] Acc #: [id number] NAME: TYRESE GAMA : 1930 SEX: F STUDY DATE/TIME: 11/05/2016 14:45 UNIT: [facility] ROOM: [facility] STUDY DESCRIPTION: US Carotid W/Doppler Bilateral Attending Physician: Zan Blanchard M.D. Ordering Physician: Darren Galeana M.D. Primary Care Physician: Brian Mao M.D. MEDICAL IMAGING REPORT This report is preliminary unless electronic signature is present EXAM Carotid ultrasound HISTORY Confusion for 2 weeks. FINDINGS Ultrasound examination of the carotid arteries was performed with malcolm-scale, color Doppler and spectral Doppler evaluation. There is mild plaque in the right common carotid artery and mild partly calcified plaque in the right carotid bulb extending to the proximal right internal carotid artery. There is also ummq-ap-ujjckeyy partly calcified plaque in the left carotid bulb extending into the proximal bifurcation vessels. Peak systolic velocities in the internal carotid arteries are 63 cm/sec on the right and 73 cm/sec on the left. There is no evidence of hemodynamically significant carotid artery stenosis by NASCET criteria. The external carotid arteries are patent bilaterally. There is antegrade flow in both vertebral arteries. IMPRESSION 1. No evidence of hemodynamically significant carotid artery stenosis by NASCET criteria. 2. Kwra-uq-gkjlwekk plaque in the carotid arteries bilaterally. 3. Antegrade flow in both vertebral arteries. The external carotid arteries are patent bilaterally. Dictated by... Abimael Escamilla M.D. [facility] A Service [facility] RADIOLOGY TEXT RESULTS PATIENT: TYRESE GAMA LOCATION: [facility] 561 : 31 UNIT #: [id number] AGE: [address]: Zan Blanchard MD SEX: F ORDER DR: THIS IS AN ELECTRONICALLY VERIFIED REPORT Abimael Escamilla M.D. at 11/05/2016 10:50 PM COLLIN/dayanara TD: 11/05/2016 15:48 JOB #: [id number] MEDICAL IMAGING REPORT Page 1 of 1 COPY
[2016-11-04 19:46] LABS: BASOPHIL% 0.6 % (0-2.5); EOSINOPHIL% 0.4 % (0.0-7.0); HEMATOCRIT 33.1 % (35.0-45.0); HEMOGLOBIN 10.3 gm/dL (12.0-16.0); LYMPHOCYTE# 0.4 X10e3 (1.0-3.5); LYMPHOCYTE% 10.8 % (17.0-45.0); MEAN CELL VOLUME 89.2 FL (83-96); MEAN CORPUSCULAR HEMOGLOBIN 27.9 PG (28-34); MEAN CORPUSCULAR HGB CONC 31.3 g/dL (30-36); MEAN PLATELET VOLUME 8.3 FL (6.5-11.5); MONOCYTE# 0.2 X10e3 (0-1.0); MONOCYTE% 4.2 % (3.0-12.0); NEUTROPHIL# 3.5 X10e3 (1.5-7.1); PLATELET COUNT 143 X10e3 (140-420); RED CELL DISTRIBUTION WIDTH 17.5 % (11.0-15.5); WHITE BLOOD COUNT 4.2 X10e3 (4.0-10.5)
[2016-11-04 19:50] LABS: DIFF IND NO
[~2016-11-04 19:50] MED LIST: BYSTOLIC5 MG PO; CHLOR-TRIMETON4 MG PO; LASIX20 MG PO; LISINOPRIL10 MG PO; MULTI VITAMIN1 EACH PO
[2016-11-04 20:12] LABS: POC - TROPONIN <0.05 ng/mL (<=0.05)
[2016-11-04 20:25] LABS: ALBUMIN SERUM 3.6 g/dL (3.5-5.0); BILIRUBIN, DIRECT 0.1 mg/dL (0.0-0.2); BILIRUBIN,INDIRECT 0.9 mg/dL (0.0-0.9); BUN/CREATININE RATIO 92.5; CALCIUM SERUM 9.1 mg/dL (8.4-10.2); CREATININE SERUM 0.4 mg/dL (0.6-1.4); POTASSIUM 4.4 mmol/L (3.5-5.1); PROTEIN TOTAL SERUM 6.4 g/dL (6.0-8.3)
[2016-11-04] MEDS ORDERED: ASPIRIN81 MG PO (22:12)
[2016-11-04] MEDS ORDERED: LIPITOR80 MG PO (22:12)
[2016-11-04] MEDS ORDERED: MULTI-VITAMIN1 EAC1 PO (22:13)
[2016-11-05 00:23] LABS: ARTERIAL BLD GAS O2 SATURATION 91.2 % (90.0-100.0); ARTERIAL BLOOD GAS CARBOXY HB 1.4 %sat (0.0-9.0); ARTERIAL BLOOD GAS HCO3 32.8 mmol/L; ARTERIAL BLOOD GAS MET HB 0.5 %sat (0.0-2.0); ARTERIAL BLOOD GAS pH 7.276 (7.350-7.450)
[2016-11-05 00:28] LABS: ARTERIAL BLOOD GAS ALLEN TEST NORMAL; ARTERIAL BLOOD GAS ART SITE RIGHT RADIAL; ARTERIAL BLOOD GAS DELIVERY NASAL CANNULA; ARTERIAL BLOOD GAS PCO2 70.5 mmHg (35.0-45.0); ARTERIAL BLOOD GAS PO2 71.8 mmHg (80.0-100); ARTERIAL DRAW? YES
[2016-11-05 02:20] LABS: URINE SOURCE CLEAN CATCH
[2016-11-05 02:25] LABS: URINE APPEARANCE CLEAR; URINE BILIRUBIN NEG (NEG); URINE BLOOD NEG (NEG); URINE COLOR YELLOW; URINE GLUCOSE NEG (NEG); URINE KETONE NEG (NEG); URINE LEUKOCYTE ESTERASE NEG (NEG); URINE NITRATE NEG (NEG); URINE PROTEIN NEG (NEG); URINE SPECIFIC GRAVITY 1.006 (1.003-1.035); URINE UROBILINOGEN 0.2 MG/DL (NEG)
[2016-11-05 02:28] LABS: CULTURE INDICATED? NO
[2016-11-05 06:16] LABS: CALCIUM SERUM 9.2 mg/dL (8.4-10.2); CREATININE SERUM 0.5 mg/dL (0.6-1.4); GLOM FILT RATE Estimated 88.3 mL/min (>60); POTASSIUM 4.4 mmol/L (3.5-5.1)
[2016-11-05 12:12] LABS: CHOLESTEROL 175 mg/dL (0-200); HDL CHOLESTEROL 88 mg/dL (35-95); LDL CHOLESTEROL 77 mg/dL ([, -130]); LDL/HDL RATIO 1 RATIO (0-4); TRIGLYCERIDES 48 mg/dL (10-160)
[2016-11-05 12:15] LABS: THYROID STIMULATING HORMONE 4.13 uIU/ml (0.34-5.60)
[2016-11-05 12:22] LABS: FREE THYROXIN (T4) 0.91 ng/dL (0.58-1.64)
[2016-11-05 12:32] LABS: FOLATE (FOLIC ACID) >23.6 ng/mL (>5.8)
[2016-11-05 13:19] LABS: PARTIAL THROMBOPLASTIN TIME 28.5 SECONDS (23.5-31.3); PROTHROMBIN TIME (PATIENT) 10.5 SECONDS (9.6-11.5)
[2016-11-05 20:41] LABS: PROTEIN, BODY FLUID 2.9 gm/dL
[2016-11-05 20:42] LABS: BF TOTAL NUCLEATED CELL COUNT 513 CMM (0-100); BODY FLUID APPEARANCE HAZY; BODY FLUID RBC 8000 CMM; BODY FLUID SOURCE PLEURAL
[2016-11-06 04:11] LABS: ARTERIAL BLD GAS O2 SATURATION 91.7 % (90.0-100.0); ARTERIAL BLOOD GAS CARBOXY HB 1.3 %sat (0.0-9.0); ARTERIAL BLOOD GAS HCO3 35.9 mmol/L; ARTERIAL BLOOD GAS MET HB 0.4 %sat (0.0-2.0)
[2016-11-06 04:13] LABS: ARTERIAL BLOOD GAS ART SITE RIGHT BRACHIAL; ARTERIAL BLOOD GAS DELIVERY NASAL CANNULA; ARTERIAL BLOOD GAS LITER FLOW 4.5; ARTERIAL BLOOD GAS PCO2 52.9 mmHg (35.0-45.0); ARTERIAL DRAW? YES
[2016-11-06 07:04] LABS: HEMATOCRIT 31.1 % (35.0-45.0); MEAN CELL VOLUME 88.7 FL (83-96); MEAN CORPUSCULAR HEMOGLOBIN 28.5 PG (28-34); MEAN CORPUSCULAR HGB CONC 32.1 g/dL (30-36); MEAN PLATELET VOLUME 9.4 FL (6.5-11.5); RED BLOOD COUNT 3.5 X10e (3.90-5.30); RED CELL DISTRIBUTION WIDTH 17.6 % (11.0-15.5)
[2016-11-06 07:29] LABS: ALBUMIN SERUM 3.2 g/dL (3.5-5.0); BILIRUBIN,TOTAL 0.6 mg/dL (0.2-2.0); CALCIUM SERUM 9.1 mg/dL (8.4-10.2); GLOM FILT RATE Estimated 51.4 mL/min (>60); POTASSIUM 4.5 mmol/L (3.5-5.1); PROTEIN TOTAL SERUM 5.4 g/dL (6.0-8.3)
[2016-11-06 07:47] LABS: CHOLESTEROL 175 mg/dL (0-200); HDL CHOLESTEROL 82 mg/dL (35-95); LDL CHOLESTEROL 82 mg/dL ([, -130]); LDL/HDL RATIO 1 RATIO (0-4); TRIGLYCERIDES 53 mg/dL (10-160)
[2016-11-07 06:56] LABS: CALCIUM SERUM 9.2 mg/dL (8.4-10.2); GLOM FILT RATE Estimated 51.4 mL/min (>60); POTASSIUM 4.3 mmol/L (3.5-5.1)
[2016-11-07 20:13] LABS: ARTERIAL BLOOD GAS CARBOXY HB 1.3 %sat (0.0-9.0); ARTERIAL BLOOD GAS HCO3 36.3 mmol/L; ARTERIAL BLOOD GAS MET HB 0.5 %sat (0.0-2.0); ARTERIAL BLOOD GAS pH 7.486 (7.350-7.450)
[2016-11-07 20:15] LABS: ARTERIAL BLOOD GAS ALLEN TEST NORMAL; ARTERIAL BLOOD GAS ART SITE RIGHT RADIAL; ARTERIAL BLOOD GAS DELIVERY NASAL CANNULA; ARTERIAL BLOOD GAS PO2 66.4 mmHg (80.0-100); ARTERIAL DRAW? YES
[2016-11-08 06:06] LABS: CALCIUM SERUM 9.3 mg/dL (8.4-10.2); CREATININE SERUM 0.9 mg/dL (0.6-1.4); GLOM FILT RATE Estimated 58.3 mL/min (>60); POTASSIUM 4.4 mmol/L (3.5-5.1)
[2016-11-08 06:35] LABS: HEMATOCRIT 32.8 % (35.0-45.0); HEMOGLOBIN 10.5 gm/dL (12.0-16.0); MEAN CELL VOLUME 87.5 FL (83-96); MEAN CORPUSCULAR HEMOGLOBIN 27.9 PG (28-34); MEAN CORPUSCULAR HGB CONC 31.9 g/dL (30-36); MEAN PLATELET VOLUME 8.9 FL (6.5-11.5); RED BLOOD COUNT 3.75 X10e (3.90-5.30); RED CELL DISTRIBUTION WIDTH 17.7 % (11.0-15.5); WHITE BLOOD COUNT 8.1 X10e3 (4.0-10.5)
[2016-11-09 06:44] LABS: BUN/CREATININE RATIO 40.83; CALCIUM SERUM 9.1 mg/dL (8.4-10.2); CREATININE SERUM 1.2 mg/dL (0.6-1.4); GLOM FILT RATE Estimated 41.2 mL/min (>60); POTASSIUM 4.1 mmol/L (3.5-5.1)
[2016-11-10 05:26] LABS: HEMATOCRIT 35.1 % (35.0-45.0); HEMOGLOBIN 11.2 gm/dL (12.0-16.0); MEAN CORPUSCULAR HEMOGLOBIN 27.7 PG (28-34); MEAN CORPUSCULAR HGB CONC 31.8 g/dL (30-36); MEAN PLATELET VOLUME 8.4 FL (6.5-11.5); RED BLOOD COUNT 4.03 X10e (3.90-5.30); RED CELL DISTRIBUTION WIDTH 17.8 % (11.0-15.5); WHITE BLOOD COUNT 7.6 X10e3 (4.0-10.5)
[2016-11-10 06:34] LABS: CALCIUM SERUM 8.6 mg/dL (8.4-10.2); CREATININE SERUM 1.5 mg/dL (0.6-1.4); GLOM FILT RATE Estimated 31.5 mL/min (>60); POTASSIUM 4.4 mmol/L (3.5-5.1)
[2016-11-11 07:53] LABS: HEMATOCRIT 37.5 % (35.0-45.0); HEMOGLOBIN 11.9 gm/dL (12.0-16.0); MEAN CELL VOLUME 87.2 FL (83-96); MEAN CORPUSCULAR HEMOGLOBIN 27.6 PG (28-34); MEAN CORPUSCULAR HGB CONC 31.7 g/dL (30-36); MEAN PLATELET VOLUME 8.3 FL (6.5-11.5); RED BLOOD COUNT 4.3 X10e (3.90-5.30); WHITE BLOOD COUNT 9.9 X10e3 (4.0-10.5)
[2016-11-11 08:21] LABS: BUN/CREATININE RATIO 43.33; CALCIUM SERUM 9.1 mg/dL (8.4-10.2); CREATININE SERUM 1.2 mg/dL (0.6-1.4); GLOM FILT RATE Estimated 41.2 mL/min (>60); MAGNESIUM 2.1 mg/dL (1.6-3.0); POTASSIUM 3.8 mmol/L (3.5-5.1)
[2016-11-11 09:19] LABS: PARTIAL THROMBOPLASTIN TIME 22.6 SECONDS (23.5-31.3); PROTHROMBIN TIME (PATIENT) 10.4 SECONDS (9.6-11.5)
[2016-11-13 07:18] LABS: BUN/CREATININE RATIO 56.36; CALCIUM SERUM 9.2 mg/dL (8.4-10.2); CREATININE SERUM 1.1 mg/dL (0.6-1.4); GLOM FILT RATE Estimated 45.8 mL/min (>60); POTASSIUM 4.5 mmol/L (3.5-5.1)
== END 2016-11-14 22:05 | DRG 291 ==
LOC: CED 19:50 → CEDOF 20:50 → C5B 23:20 → C3A PCU 11-05 22:55
PROVIDERS: Emergency Medicine; Internal Medicine; Internal Medicine Cardiovascular Disease; Internal Medicine Nephrology; Internal Medicine Sleep Medicine; Nurse Practitioner; Nurse Practitioner Family; Psychiatry & Neurology Neurology
PROC: 0W9B3ZZ Drainage of Left Pleural Cavity, Percutaneous Approach (ICD-10-PCS; principal; 2016-11-05)
DX: I50.33 Acute on chronic diastolic (congestive) heart failure (principal); J96.01 Acute respiratory failure with hypoxia; I63.8 Other cerebral infarction; I47.2 Ventricular tachycardia; J90 Pleural effusion, not elsewhere classified; J96.02 Acute respiratory failure with hypercapnia; I95.9 Hypotension, unspecified; N17.9 Acute kidney failure, unspecified; I27.2 Other secondary pulmonary hypertension; D69.6 Thrombocytopenia, unspecified; I42.8 Other cardiomyopathies; E44.0 Moderate protein-calorie malnutrition; J44.1 Chronic obstructive pulmonary disease with (acute) exacerbation; J98.11 Atelectasis; R42 Dizziness and giddiness; I08.2 Rheumatic disorders of both aortic and tricuspid valves; I95.1 Orthostatic hypotension; R41.89 Other symptoms and signs involving cognitive functions and awareness; I25.10 Atherosclerotic heart disease of native coronary artery without angina pectoris; Z95.1 Presence of aortocoronary bypass graft; Z87.891 Personal history of nicotine dependence; Z95.2 Presence of prosthetic heart valve; Z68.24 Body mass index [BMI] 24.0-24.9, adult; E78.5 Hyperlipidemia, unspecified; Z91.81 History of falling; M25.572 Pain in left ankle and joints of left foot; Z79.82 Long term (current) use of aspirin
CPT/HCPCS: 36415; 36600; 70544; 70547; 70551; 71010; 71020; 71250; 76770; 80048; 80053; 80061; 80076; 81003; 82553; 82607; 82746; 82803; 82945; 82947; 83036; 83735; 83880; 84157; 84439; 84443; 84484; 85025; 85027; 85610; 85730; 86140; 87070; 87205; 88108; 88305; 89051; 93005; 93306; 93880; 94640; 94660; 94760; 96360; 97110; 97116; 97162; 97166; 97530; 97535; 99285; G0238; G8978-GP; G8979-GP; G8987-GO; G8988-GO; J0171; J0696; J1940; J2920; J2930

== ENCOUNTER → 2017-01-16 | Outpatient (CLI) | payer OTHER ==
[~2017-01-16] MED LIST changes: +ASPIRIN81 MG PO; +LIPITOR80 MG PO; +MULTI-VITAMIN1 EAC1 PO
--- NOTE | ~2017-01-16 | CT57 ---
[facility] A Service of [facility] RADIOLOGY TEXT RESULTS PATIENT: [facility]YRES[facility] GAMA [facility] UNIT #: [id number] AGE: [address]: Nelson Tovar MD SEX: F ORDER DR: [id number] [facility] [address] [place], [place] [address] [id number] O MR#: [id number] Acc #: [id number] NAME: TYRESE GAMA : 1930 SEX: F STUDY DATE/TIME: 01/16/2017 14:17 UNIT: [facility] ROOM: STUDY DESCRIPTION: CT Chest Wo Cont Attending Physician: Nelson Tovar M.D. Referring Physician: Nelson Tovar M.D. Ordering Physician: Nelson Tovar M.D. Primary Care Physician: Brian Mao M.D. MEDICAL IMAGING REPORT This report is preliminary unless electronic signature is present EXAM CT of the chest without contrast. INDICATION Chronic cough. The patient had a CT of the chest which was performed on November 05, 2016 which showed bilateral pleural effusions and an anterior mediastinal collection. TECHNIQUE Axial CT images were obtained from the thoracic inlet through the dome of the diaphragm. This CT exam was performed with one or more of the following radiation dose reduction techniques: automatic exposure control, adjustment of mA and/or kV according to patient size, and iterative reconstruction. FINDINGS An anterior mediastinal fluid collection appears smaller than on the prior examination from November 05, 2016, now measuring about 8.7 x 2.0 cm, previously 9.4 x 1.5 cm. There is a trace left pleural effusion which is actually slightly larger than on the prior examination, although a right pleural effusion has essentially resolved. The thyroid gland, trachea, and esophagus appear unremarkable. 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 Descending thoracic aorta measures within normal size limits. Coronary artery calcifications are seen. 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 Mildly prominent mediastinal lymph nodes are again seen and are likely reactive. This patient has background emphysematous changes. I do not see any new pulmonary nodules or masses. There is biapical scarring right greater than left. Images through the upper abdomen demonstrate cholelithiasis but no other acute abnormalities are seen within the upper abdomen. [facility] A Service of [facility] RADIOLOGY TEXT RESULTS PATIENT: TYRESE GAMA LOCATION: [facility] : 31 UNIT #: [id number] AGE: [address]: Nelson Tovar MD SEX: F ORDER DR: Review of bony windows does not demonstrate any aggressive osseous abnormalities. IMPRESSION 1. Interval decrease in the anterior mediastinal collection when compared to the prior exam. 2. Left pleural effusion is slightly larger than on the prior study but remains extremely small. Previously identified right pleural effusion has resolved. 3. Aneurysmal dilatation of the ascending thoracic aorta. 4. Background emphysematous changes with biapical fibrosis, right greater than left. 5. Cholelithiasis. Dictated by... Kasey Rivera M.D. THIS IS AN ELECTRONICALLY VERIFIED REPORT Kasey Rivera M.D. at 01/20/2017 3:29 PM AFF/tmw TD: 01/16/2017 16:48 JOB #: [id number] MEDICAL IMAGING REPORT Page 1 of 1 COPY
== END | disposition home or self-care (01) ==
LOC: CCAT 13:59
DX: J44.9 Chronic obstructive pulmonary disease, unspecified (principal); J90 Pleural effusion, not elsewhere classified; I71.2 Thoracic aortic aneurysm, without rupture; K80.20 Calculus of gallbladder without cholecystitis without obstruction
CPT/HCPCS: 71250